=== PATIENT | male | born 1965 | race Hispanic/Latino ===

== ENCOUNTER → 2024-02-25 | Outpatient (CLI) | payer BC ==
[~2024-02-25] MED LIST: IOHEXOL-350 50ML VIAL IV ONE
--- NOTE | 2024-02-25 13:04 | HMCIMG ---
CT CHEST W/WO CONTRAST REASON: Solitary pulmonary nodule COMPARISON: None. TECHNIQUE: Images are obtained from lung bases to the symphysis pubis before and following IV contrast, 50 cc Omnipaque 350. TECHNIQUE: Multiple sequential axial images of the chest were obtained from the thoracic inlet through the upper pole of the kidneys without intravenous contrast administration. FINDINGS: There is a 12 x 18 mm focal lesion present in posteriorly in the right upper lobe. This is thin-walled with a central cavitation. There is a single adjacent 5 mm soft tissue nodule. Remaining portions of both lungs are clear. There is normal appearing interstitial pattern. There is no pleural effusion. Heart size is normal. There is no hilar or mediastinal lymphadenopathy. Chest wall structures appear normal as do visualized upper abdominal structures. These findings are nonspecific. This can be due to sequela of pneumonia. Fungal infections such as coccidiomycosis can result in this appearance. The lesion does not appear typical of tuberculosis but this should also be a excluded. Remaining lung parenchyma appears normal. There are no other focal abnormalities in the lungs, mediastinum or bony thorax. Upper abdominal structures appear normal as well. IMPRESSION: 1. Thin-walled 12 x 18 mm cavitating lesion posteriorly in the right upper lobe, with an adjacent 5 mm nodular density. 2. These findings are nonspecific but most consistent with an inflammatory process, please see above differential discussion, short-term interval CT may be helpful to confirm stable appearance or resolution. CT was performed with one or more following dose reduction techniques: automated exposure control, adjustment of the mA and kv according to patient's size, or use of a iterative reconstruction technique.
== END | disposition home or self-care (01) ==
LOC: RAH 09:40
PROVIDERS: ATTEND Family Medicine
DX: R91.1 Solitary pulmonary nodule (principal); J98.4 Other disorders of lung
CPT/HCPCS: 71270; Q9967